=== PATIENT | female | born 1940 | race Caucasian/White ===

== ENCOUNTER → 2016-05-26 | Outpatient (CLI) | payer OTHER, BC ==
[~2016-05-26] MED LIST: ALDACTONE25 MG; ASPIRIN EC81 M1; CALTRATE 600 +1 EACH; FISH OIL 1,0001 EAC5; GLUCOPHAGE500 MG; GLUCOSAMINE CH1 EAC7; LEVOXYL75 MCG; VALIUM2 MG PO
== END ==
LOC: RAD 01:49
DX: Z12.31 Encounter for screening mammogram for malignant neoplasm of breast (principal)

== ENCOUNTER → 2016-09-01 | Outpatient (CLI) | payer OTHER, BC | LOC: NUC 05:46 | DX: Z78.0 Asymptomatic menopausal state (principal) ==

== ENCOUNTER → 2017-05-26 | Outpatient (CLI) | payer OTHER, BC | LOC: RAD 01:16 | DX: Z12.31 Encounter for screening mammogram for malignant neoplasm of breast (principal) ==

== ENCOUNTER → 2018-05-30 | Outpatient (CLI) | payer OTHER, BC | LOC: RAD 05-26 14:25 | DX: Z12.31 Encounter for screening mammogram for malignant neoplasm of breast (principal) ==

== ENCOUNTER → 2019-06-01 | Outpatient (CLI) | payer OTHER, BC | LOC: RAD 09:35 → BC 20:55 | DX: Z12.31 Encounter for screening mammogram for malignant neoplasm of breast (principal) ==

== ENCOUNTER → 2020-06-03 | Outpatient (CLI) | payer OTHER, BC | LOC: RAD 09:57 | PROVIDERS: ATTEND Internal Medicine | DX: Z12.31 Encounter for screening mammogram for malignant neoplasm of breast (principal) ==

== ENCOUNTER → 2021-05-14 | Outpatient (CLI) | payer OTHER, BC | LOC: BC 09:07 | PROVIDERS: ATTEND Internal Medicine | DX: Z12.31 Encounter for screening mammogram for malignant neoplasm of breast (principal) ==